=== PATIENT | female | born 1970 | race Caucasian/White ===

== ENCOUNTER 2017-02-13 12:37 | Emergency (ER) | payer OTHER ==
[~2017-02-13] VITALS: Ht 152.4 cm; Wt 65.8 kg
[2017-02-13 13:27] VITALS: BP 131/79
--- NOTE | 2017-02-13 21:05 | NUR ---
TO ER OF2
--- NOTE | 2017-02-13 21:20 | NUR ---
Patient being evaluated by physician.
[2017-02-13 22:00] VITALS: BP 128/80
== END 2017-02-13 22:00 | disposition home or self-care (01) ==
LOC: MED 12:37
DX: L84 Corns and callosities (principal); R03.0 Elevated blood-pressure reading, without diagnosis of hypertension; Z88.6 Allergy status to analgesic agent; Z88.5 Allergy status to narcotic agent